=== PATIENT | female | born 1995 | race Caucasian/White ===

== ENCOUNTER 2018-06-27 20:50 | Emergency (ER) | payer SELFPAY ==
[~2018-06-27] VITALS: Ht 154.9 cm; Wt 59.0 kg
[2018-06-27] MEDS ORDERED: Motrin,Rufen800 MG PO (21:42)
[2018-06-27] MEDS ORDERED: AMOXICILLIN500 M2 PO (21:42)
== END 2018-06-27 21:50 | disposition home or self-care (01) ==
LOC: ED 20:50
DX: K04.7 Periapical abscess without sinus (principal)

== ENCOUNTER → 2024-01-23 | Outpatient (CLI) | payer OTHER ==
[~2024-01-23] MED LIST: AMOXICILLIN500 M2 PO; Motrin,Rufen800 MG PO
[2024-01-23 09:08] LABS: BASO % 0.2 % (0.0-1.0); EOS # 0.1 10*3/uL (0.0-0.4); HEMATOCRIT 38.3 % (37.0-47.0); LYMPH # 1.3 10*3/uL (1.3-4.4); LYMPH % 30.9 % (27.0-41.0); MEAN CELL VOLUME 90.5 fl (81.0-99.0); MEAN CORPUSCULAR HGB 29.8 pg (27.0-31.0); MEAN CORPUSCULAR HGB CONC 32.9 g/dl (33.0-37.0); MEAN PLATELET VOLUME 9.3 fl (9.6-12.3); MONO # 0.5 10*3/uL (0.1-1.0); MONO % 11.3 % (3.0-9.0); NEUT # 2.3 10*3/uL (2.3-7.9); NEUT % 55.4 % (47.0-73.0); PLATELET COUNT AUTOMATED 269 10*3/uL (130-400); RED BLOOD COUNT 4.23 10*6/uL (4.10-5.10); RED CELL DISTRI WIDTH 13.2 % (0-14.5); WHITE BLOOD COUNT 4.1 10*3/uL (4.8-10.8)
[2024-01-23 09:48] LABS: ALKALINE PHOSPHATASE 64 U/L (46-116); BUN 12 mg/dl (9-23); CHLORIDE 109 mmol/L (98-107); CHOLESTEROL 154 mg/dL (<200); LDL CHOLESTEROL 94 mg/dL (9-159); POTASSIUM 4.1 mmol/L (3.4-5.1); SGPT/ALT 11 U/L (5-49); TOTAL PROTEIN 6.9 gm/dL (6.0-8.0)
[2024-01-23 10:59] LABS: VITAMIN D, 25-HYDROXY 34.9 ng/mL (30-100)
[2024-01-24 06:09] LABS: HBSAG Negative (Negative); HEP B CORE AB, IGM Negative (Negative); HEPATITIS C ANTIBODY Non Reactive (Non Reactive)
== END | disposition home or self-care (01) ==
LOC: LAB 08:41
PROVIDERS: ATTEND Registered Nurse
DX: Z11.59 Encounter for screening for other viral diseases (principal); Z13.1 Encounter for screening for diabetes mellitus; Z13.220 Encounter for screening for lipoid disorders; E78.5 Hyperlipidemia, unspecified; E03.9 Hypothyroidism, unspecified; F19.20 Other psychoactive substance dependence, uncomplicated